=== PATIENT | female | born 1985 | race Caucasian/White ===

== ENCOUNTER → 2016-08-29 | Outpatient (CLI) | payer BC ==
--- NOTE | 2016-08-29 20:30 | FL ---
EXAMINATION: Hysterosalpingogram. DATE: 08/29/2016 CLINICAL INFORMATION: 31-year-old female encountered for surveillance of other contraceptives, each a re placement on 06/07/2016, check fallopian tube patency. Total fluoroscopy time: 0.2 minutes. COMPARISON: [None.] FINDINGS: [facility] image demonstrates bilateral Essures in place projecting over the expected location of the fall opian tubes. No other foreign bodies are seen within the pelvis. A phlebolith is noted in the left hemipelvis. The imaged abdomen and pelvis is otherwise unremarkable. Following standard sterile technique, the patient's cervical canal was cannulated, balloon inflated, and a total of 10 mL Omnipaque 240 contrast material injected into the uterine cavity. There is promp t filling of the uterine cavity. Contrast is seen progressing to the uterine horns. No contrast material traverses beyond the fallopia n tubes. There is no spillage of contrast into the peritoneal cavity. IMPRESSION: Normal hysterosalpingogram status post bilateral Essure placement.
== END | disposition home or self-care (01) ==
LOC: RADFLWHC 13:38
PROVIDERS: ATTEND Obstetrics & Gynecology
DX: Z30.49 Encounter for surveillance of other contraceptives (principal); Z98.51 Tubal ligation status
CPT/HCPCS: 84702; 58340; 74740; 36415; Q9966

== ENCOUNTER → 2022-07-02 | Outpatient (CLI) | payer BC ==
[2022-07-02 18:15] LABS: Basophils # (A) 0.05 X 10*3/uL (0.00-0.10); Basophils % (A) 0.6 %; Eosinophils # (A) 0.07 X 10*3/uL (0.04-0.35); Eosinophils % (A) 0.9 %; HCT 45.3 % (37.2-46.3); HGB 14.3 g/dL (12.0-15.0); Immature Grans, Automated 0.1 %; Lymphocytes # (A) 1.94 X 10*3/uL (0.90-5.00); MCH 29.1 pg (27.0-32.0); MCHC 31.6 g/dL (32.0-37.0); MCV 92.3 fL (80.0-97.0); Mean Platelet Volume 10.7 fL (9.5-12.2); Monocytes # (A) 0.31 X 10*3/uL (0.20-1.00); NRBC Per 100 WBC 0 /100 WBCS (0.0-0.0); Neutrophils # (A) 5.37 X 10*3/uL (1.80-7.70); Neutrophils % (A) 69.4 %; Platelet Count 283 X 10*3/uL (140-440); RBC 4.91 X 10*6/uL (4.10-5.20); RDW 12.6 % (11.5-14.5); WBC 7.75 X 10*3/uL (4.50-10.00)
[2022-07-02 18:56] LABS: ALT 14 U/L (8-44); AST 10 U/L (13-35); African American GFR (CKD) 105.6 (60.0-200.0); Albumin 4.2 g/dL (3.8-4.9); Albumin/Globulin Ratio 1.95 (1.60-3.17); Alkaline Phosphatase 91 U/L (41-126); BUN/Creat Ratio 15.87 Ratio (12.00-20.00); Blood Urea Nitrogen 12.9 mg/dL (9.0-27.0); Calcium 9.4 mg/dL (8.7-10.3); Carbon Dioxide 27.2 mmol/L (20.0-27.5); Chloride 104 mmol/L (96-109); Globulin 2.2 g/dL (1.6-3.3); Glucose 87 mg/dL (70-110); LDL Cholesterol,Calculated 129.6 mg/dL (0.0-131.0); Non-African American GFR(CKD) 91.1 (60.0-200.0); Potassium 4.1 mmol/L (3.5-5.5); Sodium 142 mmol/L (135-145); Total Protein 6.3 g/dL (6.2-8.2)
== END | disposition home or self-care (01) ==
LOC: LABWHC1 08:29
PROVIDERS: ATTEND Family Medicine
DX: Z00.01 Encounter for general adult medical examination with abnormal findings (principal); E66.01 Morbid (severe) obesity due to excess calories; E53.9 Vitamin B deficiency, unspecified; E55.9 Vitamin D deficiency, unspecified
CPT/HCPCS: 36415; 80053; 80061; 82306; 82607; 83036; 84443; 85025

== ENCOUNTER → 2024-08-07 | Outpatient (CLI) | payer BC ==
--- NOTE | 2024-08-07 13:19 | MM ---
Reason for Exam: Screening (asymptomatic). Baseline mammogram. Patient History: Menarche at age 11. First Full-Term at age 25. Patient has history of breast feeding. Patient used Hormonal Contraceptives for 8 years. Last menstrual period: 07/23/2024 Risk Values: Bethanie 5 year model risk: 0.7%. NCI Lifetime model risk: 11.0%. Prior Study Comparison: Patient's first Mammogram. Tissue Density: There are scattered areas of fibroglandular density. Findings: Analyzed By CAD. Right breast: There is no suspicious group of microcalcifications or new suspicious mass. Left breast: Focal asymmetry left breast lateral aspect on CC view 9.8 cm from nipple. On MLO view 9.0 cm from nipple posterior nipple line. Overall Assessment: Incomplete: need additional imaging evaluation, BI-RAD 0 Management: Diagnostic Mammogram of the left breast. Diagnostic Breast Ultrasound of the left breast. [facility] will attempt to contact patient to return for supplemental views and ultrasound if indicated. Patient should continue monthly self-breast exams. A clinical breast exam by your physician is recommended on an annual basis. This exam should not preclude additional follow-up of suspicious palpable abnormalities. Note on Bethanie scores and lifetime risk: 1. A Bethanie score greater than 3% is considered moderate risk. If this is the case, consider specialist referral to assess eligibility for a risk reducing agent. 2. If overall lifetime risk for the development of breast cancer is 20% or higher, the patient may qualify for future screening with alternating mammogram and breast MRI. [facility], , 08/07/2024 1:16 PM. Electronically signed and approved by: Keith Degroot DO
== END | disposition home or self-care (01) ==
LOC: RADMAMWWP 10:23
PROVIDERS: ATTEND Family Medicine
DX: Z12.31 Encounter for screening mammogram for malignant neoplasm of breast (principal); R92.323 Mammographic fibroglandular density, bilateral breasts; Z92.0 Personal history of contraception
CPT/HCPCS: 77067

== ENCOUNTER → 2024-08-19 | Outpatient (CLI) | payer BC ==
--- NOTE | 2024-08-19 14:40 | MM ---
Reason for Exam: Clinical finding. Last screening mammogram was performed less than 1 month ago. Patient History: Menarche at age 11. First Full-Term at age 25. Patient has history of breast feeding. Patient used Hormonal Contraceptives for 8 years. Last menstrual period: 08/19/2024 Risk Values: Bethanie 5 year model risk: 0.7%. NCI Lifetime model risk: 11.0%. Prior Study Comparison: 08/07/2024 Bilateral MG screening mammo w CAD, [facility]. Tissue Density: Left: There are scattered areas of fibroglandular density. Findings: Analyzed By CAD. Vague 1 cm area of focal asymmetry approximately 4:00 position left breast becomes less defined on additional views. This suggests a benign etiology such as a small island of tissue or underlying cyst. Further ultrasound evaluation is recommended. Overall Assessment: Incomplete: need additional imaging evaluation, BI-RAD 0 Management: Diagnostic Breast Ultrasound of the left breast. [facility], , 08/19/2024 2:38 PM. Electronically signed and approved by: Barber Medina M.D. Radiologist
--- NOTE | 2024-08-19 15:26 | USB ---
Reason for Exam: Additional evaluation requested from abnormal screening. Patient History: Menarche at age 11. First Full-Term at age 25. Patient has history of breast feeding. Patient used Hormonal Contraceptives for 8 years. Risk Values: Bethanie 5 year model risk: 0.7%. NCI Lifetime model risk: 11.0%. Technique: Method: Targeted. Prior Study Comparison: 08/07/2024 Bilateral MG screening mammo w CAD, [facility]. Findings: The lower outer quadrant of the left breast, the axilla of the left breast and the retroareolar of the left breast were scanned. Targeted ultrasound lower outer quadrant left breast 3:00 to 6:00 including scanning of the subareolar region and axilla. At 3:00 position, 5 cm from the nipple, there is small area of focally ectatic duct measuring 11 x 4 mm. Probable mammographic correlate. Six-month follow-up mammogram can reassess. Otherwise, no solid or cystic lesion or axillary adenopathy. Overall Assessment: Probably benign, BI-RAD 3 Management: Diagnostic Mammogram of the left breast in 6 months. A clinical breast exam by your physician is recommended on an annual basis and results should be correlated with mammographic findings. This exam should not preclude additional follow-up of suspicious palpable abnormalities. Results were given to the patient verbally at the time of exam. [facility], , 08/19/2024 2:57 PM. Electronically signed and approved by: Barber Medina M.D. Radiologist
== END | disposition home or self-care (01) ==
LOC: RADMAMWWP 14:12
PROVIDERS: ATTEND Family Medicine
DX: R92.8 Other abnormal and inconclusive findings on diagnostic imaging of breast (principal); R92.322 Mammographic fibroglandular density, left breast; R92.2 Inconclusive mammogram
CPT/HCPCS: 77061; 77065